=== PATIENT | female | born 1945 | race Caucasian/White ===

== ENCOUNTER → 2021-03-08 | Outpatient (CLI) | payer MEDICARE ==
--- NOTE | 2021-03-08 16:23 | KCIC ---
Exam Date: 03/08/2021 10:10 AM MRI LEFT LOWER EXTREMITY JOINT WITHOUT Indication: Reason: ACUTE MENISCAL TEAR OF LEFT KNEE / Spl. Instructions: / History: Left anteriomed ial knee pain in recent months.. TECHNIQUE: Routine multiplanar MR imaging of the knee was performed without contrast. COMPARISON: Radiographs from November 10, 2020 FINDINGS: The body of the medial meniscus is small in size with abnormal signal and morphology consistent with complex degenerative tearing versus prior partial meniscectomy. The lateral meniscus is intact and within normal limits for age. The anterior cruciate ligament, posterior cruciate ligament, medial collateral ligament, and lateral collateral ligament complex are intact. Patellofemoral extensor mechanism and popliteus tendon are w ithin normal limits. There is extensive full-thickness chondral loss in the medial and patellofemoral compartments with mi ld subchondral degenerative marrow signal. There is moderate diffuse chondral thinning in the latera l compartment without large full-thickness chondral loss. Small to moderate tricompartment osteophytes are noted, most prominent in the medial compartment. No acute fracture is seen. There is a small joint effusion. There is a small popliteal cyst. Mild subcutaneous edema anteriorl y is nonspecific. 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 Extensive full-thickness chondral loss noted in the medial and patellofemoral compartments. Small joint effusion and small popliteal cyst noted. Electronically signed by: Last Gray MD (03/08/2021 4:21 PM) [id number]
== END ==
LOC: KCIC MRI 09:47
PROVIDERS: ATTEND Physician Assistant
DX: S83.207A Unspecified tear of unspecified meniscus, current injury, left knee, initial encounter (principal); M25.462 Effusion, left knee; M71.22 Synovial cyst of popliteal space [Baker], left knee; M25.762 Osteophyte, left knee; X58.XXXA Exposure to other specified factors, initial encounter; Y93.89 Activity, other specified; Y92.89 Other specified places as the place of occurrence of the external cause; Y99.8 Other external cause status
CPT/HCPCS: 73721

== ENCOUNTER → 2021-05-19 | Outpatient (CLI) | payer MEDICARE ==
[~2021-05-19] MED LIST: GADOTERATE 5 MMOL/10ML VIAL. IVP ONE
--- NOTE | 2021-05-19 15:52 | KCIC ---
EXAM: Brain MRI with and without contrast. HISTORY: Behavioral changes. TECHNIQUE: Multiplanar, multisequence magnetic resonance imaging of the brain was performed prior to and following the administration of intravenous contrast. COMPARISON: Head CT dated 05/02/2021. FINDINGS: There is no restricted diffusion to suggest acute or subacute infarction. There are tiny fo ci of susceptibility effect within the cerebral hemispheres, likely due to chronic microhemorrhage. T here are scattered areas of signal change within the cerebral white matter, likely due to chronic sma ll vessel disease. There is evidence of lens surgery. There is paranasal sinus mucosal thickening. The mastoid air cells are clear. There are normal flow voids within the cerebral vessels. There is no suspicious calvarial lesion. There is no suspicious enhancing lesion. IMPRESSION: 1. No acute sonographic finding. 2. Scattered foci of signal change within the cerebral white matter, most commonly due to chronic sma ll vessel disease in patients of this age. 3. Few tiny foci suspected chronic microhemorrhage within the cerebral hemispheres. Electronically signed by: Pricilla Mccain MD (05/19/2021 3:49 PM) [id number]
== END ==
LOC: KCIC MRI 13:48
DX: G93.89 Other specified disorders of brain (principal); R46.89 Other symptoms and signs involving appearance and behavior
CPT/HCPCS: 70553; 82565; A9575

== ENCOUNTER → 2021-06-02 | Outpatient (CLI) | payer MEDICARE ==
--- NOTE | 2021-06-02 16:08 | EEG ---
DATE OF SERVICE: 06/02/2021 ELECTROENCEPHALOGRAM REPORT EEG NUMBER: performed on 06/02/2021. OBJECTIVE: The patient is a 76-year-old female with altered mental status. DESCRIPTION: This is a digital study. Electrodes are placed according to the international 10-20 system. Bipolar and referential montages are available. Activation procedures typically include hyperventilation and intermittent photic stimulation. INTERPRETATION: The waking background consists of 8-9 Hz, 50-100 microvolt activity, symmetrically distributed over parieto-occipital regions and reactive to eye opening. Hyperventilation and intermittent photic stimulation are noncontributory. Episodes of paroxysmal slowing are observed consistent with drowsiness. No clear-cut epileptic activity is observed. All computer-identified abnormalities are reviewed and none are actually abnormal. IMPRESSION: This electroencephalogram with the patient awake and asleep is borderline because of the episodes of paroxysmal slowing, which most likely represent drowsiness. There is no clearcut epileptic activity. Thank you for letting us help with the patient's care. AURELIO DR: Taina TID: [id number] CC: Dr. Clemens
== END ==
LOC: RT 11:51
PROVIDERS: ATTEND Psychiatry & Neurology Neurology with Special Qualifications in Child Neurology
DX: R46.89 Other symptoms and signs involving appearance and behavior (principal)
CPT/HCPCS: 95816